=== PATIENT | male | born 1955 | race Caucasian/White ===

== ENCOUNTER → 2024-12-05 14:30 | Outpatient (REF) | payer MEDICARE, OTHER, SELFPAY | LOC: RAD 14:30 | PROVIDERS: ATTENDING PHYSICIAN Registered Nurse; FAMILY PHYSICIAN Family Medicine | DX: S89.91XA Unspecified injury of right lower leg, initial encounter (principal) | CPT/HCPCS: 73590 ==

== ENCOUNTER → 2025-01-02 07:59 | Outpatient (REF) | payer MEDICARE, OTHER, SELFPAY | LOC: WOUND 07:59 | PROVIDERS: ATTENDING PHYSICIAN Surgery; FAMILY PHYSICIAN Family Medicine | DX: L97.312 Non-pressure chronic ulcer of right ankle with fat layer exposed (principal); L85.8 Other specified epidermal thickening; C44.92 Squamous cell carcinoma of skin, unspecified; G20.C Parkinsonism, unspecified | CPT/HCPCS: 11104; 11105; 88305; 99204 ==